=== PATIENT | female | born 1960 | race Caucasian/White ===

== ENCOUNTER 2018-11-25 08:29 | Day surgery (SDC) | payer BC ==
[2018-11-25] MEDS ORDERED: Lactated Ringers 1,000 ML IV SCH (09:00)
[2018-11-25] MEDS ORDERED: fentaNYL 100 MCG/2 ML SDV ONE (09:38)
[2018-11-25] MEDS ORDERED: Propofol 200 MG/20 ML SDV ONE (09:38)
[2018-11-25] MEDS ORDERED: Midazolam 1 MG/ML 2 ML SDV ONE (09:38)
[2018-11-25 11:19] VITALS: BP 141/71
--- NOTE | 2018-11-25 12:54 | OR ---
DATE OF PROCEDURE: 11/25/2018 PREOPERATIVE DIAGNOSES: 1. Strong family history of colon cancer in brother, who of colon cancer at age 45. 2. Personal history of polyps. POSTOPERATIVE DIAGNOSES: 1. Diverticulosis. 2. Strong family history of colon cancer in brother, who of colon cancer at age 45. 3. Personal history of polyps. PROCEDURE: Colonoscopy to the cecum. SURGEON: Kirill Clifton MD ANESTHESIA: IV anesthesia with monitored anesthesia care. INDICATION: This is a 58-year-old white female, who is referred for a colonoscopy. She has a strong family history of colon cancer in that her brother at age 45 from colon cancer. She also has a sister, who apparently has had malignant polyps. She has a personal history of colon polyps. Her last colonoscopic exam she says was done 3 years ago. I counseled her for the procedure, including risks and alternatives, and she gave her informed consent to proceed. DESCRIPTION OF PROCEDURE: The patient was placed in the left lateral decubitus position. IV anesthesia was administered by the Anesthesia Service. Time-out was held. A rectal exam was performed, which was unremarkable. The flexible video Olympus colonoscope was introduced through her anus, up her rectum and out her colon all the way to the cecum. En route, we saw several left-sided diverticula. There was no bleeding or inflammation associated with any of them. Once the cecum was reached, the scope was slowly withdrawn examining the mucosa throughout. No additional mucosal abnormalities were noted. No neoplastic lesions were seen. The scope was retroflexed in the rectum with the distal rectum appearing unremarkable. The scope was straightened and removed. She tolerated the procedure well. Kirill Clifton MD /[id number]
== END 2018-11-25 11:24 | disposition home or self-care (01) ==
LOC: JP.SDS 08:29
PROVIDERS: ATTEND Surgery
DX: Z12.11 Encounter for screening for malignant neoplasm of colon (principal); K57.30 Diverticulosis of large intestine without perforation or abscess without bleeding; R73.9 Hyperglycemia, unspecified; M19.90 Unspecified osteoarthritis, unspecified site; E66.9 Obesity, unspecified; Z68.41 Body mass index [BMI] 40.0-44.9, adult; Z86.010 Personal history of colon polyps; Z80.0 Family history of malignant neoplasm of digestive organs
CPT/HCPCS: 45378; J2250; J2704; J3010; J7120

== ENCOUNTER 2025-02-10 06:44 | Day surgery (SDC) | payer BC ==
[2025-02-10] MEDS ORDERED: Midazolam 1 MG/ML 2 ML SDV ONE (07:20)
[2025-02-10] MEDS ORDERED: fentaNYL 50 MCG/ML SDV ONE (07:20)
[2025-02-10] MEDS ORDERED: Propofol 200 MG/20 ML SDV ONE (07:20)
[2025-02-10] MEDS: Lactated Ringers 1,000 ML IV SCH (07:45)
[2025-02-10 10:01] VITALS: BP 139/84; PULSE 68
== END 2025-02-10 10:31 | disposition home or self-care (01) ==
LOC: JP.SDS 06:44
PROVIDERS: ATTEND Surgery
DX: Z12.11 Encounter for screening for malignant neoplasm of colon (principal); D12.5 Benign neoplasm of sigmoid colon; D12.8 Benign neoplasm of rectum; K57.30 Diverticulosis of large intestine without perforation or abscess without bleeding
CPT/HCPCS: 45380; 45385; 88305; J2250; J2704; J3010; J7120; 00811-QZ